=== PATIENT | female | born 2000 | race Caucasian/White ===

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

== ENCOUNTER 2022-09-17 11:27 | Emergency (ER) | payer BC ==
[2022-09-17] MEDS ORDERED: SODIUM CHLORIDE 0.9% 1,000 ML IV ONE (12:04)
[2022-09-17] MEDS ORDERED: METOCLOPRAMIDE 5 MG/ML 2 ML VIAL IVP STA (12:05)
[2022-09-17] MEDS ORDERED: diphenhydrAMINE 50 MG/ML 1 ML VIAL IVP STA (12:05)
--- NOTE | 2022-09-17 12:20 | ED ---
General Adult HPI - General Chief complaint: Neuro Symptoms/Deficit Stated complaint: Facial numbness, headache Time Seen by Provider: 09/17/22 11:35 Source: patient, RN notes reviewed, old records reviewed Mode of arrival: ambulatory - History of Present Illness Initial comments: This is a 21-year-old female presents emergency Department complaining that she had some decreased sensation on her right arm and right side of her face. Patient states it started with some visual changes she stated it look like looking through status and then after that a headache came on the left side of her head and proceeded to have some abnormal sensation in her hand and her face but she always had the ability to feel. Patient never lost her sensation completely. Patient denies any weakness. Patient states at one point a coworker said she was mumbling her words and slurring him a little bit but she stated that even though she knows this is happening and she would concentrate at that time she did speak clearly and was no longer mumbling any of her words. Patient denies any fever chills per patient states she has a history of headaches. She's always called migraines but never been evaluated in the past. Patient denies any recent fevers or chills. Patient is chest pain difficulty breathing. - Related Data Home Medications Medication Instructions Recorded Confirmed ARIPiprazole [Abilify] 10 mg PO DAILY 04/13/21 04/13/21 FLUoxetine HCL [PROzac] 40 mg PO DAILY 04/13/21 04/13/21 Loratadine [Claritin] 10 mg PO HS 04/13/21 04/13/21 Omeprazole 20 mg PO W/LUNCH 04/13/21 04/13/21 cloNIDine HCL [Catapres] 0.3 mg PO HS 04/13/21 04/13/21 medroxyPROGESTERone [Depo-Provera] 150 mg IM Q84D 04/13/21 04/13/21 traZODone HCL [Desyrel] 50 mg PO HS 04/13/21 04/13/21 Previous Rx's Medication Instructions Recorded Amoxicillin 500 mg PO Q12HR 10 Days #20 cap 07/27/22 Allergies Allergy/AdvReac Type Severity Reaction Status Date / Time No Known Allergies Allergy Verified 09/17/22 11:33 Review of Systems ROS Statement: Those systems with pertinent positive or pertinent negative responses have been documented in the HPI. ROS Other: All systems not noted in ROS Statement are negative. Past Medical History Past Medical History: No Reported History Additional Past Medical History / Comment(s): migraine History of Any Multi-Drug Resistant Organisms: None Reported Past Surgical History: No Surgical Hx Reported Past Psychological History: Anxiety, Depression Smoking Status: Never smoker Past Alcohol Use History: None Reported Past Drug Use History: None Reported General Exam - General Exam Comments Initial Comments: GENERAL: Patient is well-developed and well-nourished. Patient is nontoxic and well-hydrated and is in no acute distress. ENT: Neck is soft and supple. No significant lymphadenopathy is noted. Oropharynx is clear. Moist mucous membranes. Neck has full range of motion without eliciting any pain. EYES: The sclera were anicteric and conjunctiva were pink and moist. Extraocular move ments were intact and pupils were equal round and reactive to light. Eyelids were unremarkable. PULMONARY: Unlabored respirations. Good breath sounds bilaterally. No audible rales rhonchi or wheezing was noted. CARDIOVASCULAR: There is a regular rate and rhythm without any murmurs gallops or rubs. ABDOMEN: Soft and nontender with normal bowel sounds. SKIN: Skin is clear with no lesions or rashes and otherwise unremarkable. NEUROLOGIC: Patient is alert and oriented x3. Cranial nerves II through XII are grossly intact. Motor and sensory are also intact. Normal speech, volume and content. Symmetrical smile. Cerebellar exam grossly intact. Patient has an NIH of 0 MUSCULOSKELETAL: Normal extremities with adequate strength and full range of motion. No lower extremity swelling or edema. No calf tenderness. LYMPHATICS: No significant lymphadenopathy is noted PSYCHIATRIC: Normal psychiatric evaluation. Course Vital Signs 09/17/22 09/17/22 09/17/22 11:30 12:24 13:16 Temperature 98.3 F 98.0 F Pulse Rate 96 95 84 Respiratory 16 17 16 Rate Blood Pressure 130/85 138/83 132/83 O2 Sat by Pulse 98 100 100 Oximetry 09/17/22 13:45 Temperature Pulse Rate 87 Respiratory 17 Rate Blood Pressure 137/79 O2 Sat by Pulse 100 Oximetry Medical Decision Making - Medical Decision Making Was pt. sent in by a medical professional or institution (, PA, MOTOR EQUIPMENT CAPTAIN, urgent care, hospital, or detention...) When possible be specific @ -No Did you speak to anyone other than the patient for history (EMS, parent, family, police, friend...)? What history was obtained from this source @ -No Did you review nursing and triage notes (agree or disagree)? Why? @ -I reviewed and agree with nursing and triage notes Were old charts reviewed (outside hosp., previous admission, EMS record, old EKG, old radiological studies, urgent care reports/EKG's, detention records)? Report findings @ -No old charts were reviewed Differential Diagnosis (chest pain, altered mental status, abdominal pain women, abdominal pain men, vaginal bleeding, weakness, fever, dyspnea, syncope, hea dache, dizziness, GI bleed, back pain, seizure, CVA, palpatations, mental health, musculoskeletal)? @ -Differential Headache: Migraine, tension, cluster, carbon monoxide, central venous thrombosis, pension karma temporal arteritis, acute closure glaucoma, intercranial hemorrhage, mastoiditis, sinusitis, head injury, this is not meant to be an all-inclusive list. EKG interpreted by me (3pts min.). @ -As above X-rays interpreted by me (1pt min.). @ -None done CT interpreted by me (1pt min.). @ -CT of the brain was interpreted by myself I see no acute abnormalities U/S interpreted by me (1pt. min.). @ -None done What testing was considered but not performed or refused? (CT, X-rays, U/S, labs)? Why? @ -None What meds were considered but not given or refused? Why? @ -None Did you discuss the management of the patient with other professionals (professionals i.e. , PA, MOTOR EQUIPMENT CAPTAIN, lab, RT, psych nurse, social media campaign manager, manager client support, teacher, staff weapons officer, casey saw operator)? Give summary @ -No Was smoking cessation discussed for >3mins.? @ -No Was critical care preformed (if so, how long)? @ -No Were there social determinants of health that impacted care today? How? (Homelessness, low income, unemployed, alcoholism, drug addiction, transportation, low edu. Level, literacy, decrease access to med. care, snf, rehab)? @ -No Was there de-escalation of care discussed even if they declined (Discuss DNR or withdrawal of care, Hospice)? DNR status @ -No What co-morbidities impacted this encounter? (DM, HTN, Smoking, COPD, CAD, Cancer, CVA, ARF, Chemo, Hep., AIDS, mental health diagnosis, sleep apnea, morbid obesity)? @ -None Was patient admitted / discharged? Hospital course, mention meds given and route, prescriptions, significant lab abnormalities, going to OR and other pertinent info. @ -Patient was given Benadryl and Reglan for the nausea and headache. Patient is computed tomography scan which was negative and I gave her Toradol for pain and the pain almost completely went away at that point. I did order Zofran she states she was still nauseous but then the nausea went away and she refused at this time. I went back in the room to reevaluate her and she was requesting to be discharged home. Undiagnosed new problem with uncertain prognosis? @ -No Drug Therapy requiring intensive monitoring for toxicity (Heparin, Nitro, Insulin, Cardizem)? @ -No Were any procedures done? @ -No Diagnosis/symptom? @ -Migraine headaches Acute, or Chronic, or Acute on Chronic? @ -Acute Uncomplicated (without systemic symptoms) or Complicated (systemic symptoms)? @ -complicated Side effects of treatment? @ -No Exacerbation, Progression, or Severe Exacerbation? @ -No Poses a threat to life or bodily function? How? (Chest pain, [place], VA, pneumonia, PE, COPD, DKA, ARF, appy, cholecystitis, CVA, Diverticulitis, Homicidal, Suicidal, threat to staff... and all critical care pts) @ -No - Lab Data Result diagrams: 09/17/22 12:12 09/17/22 12:12 Lab Results 09/17/22 09/17/22 Range/Units 12:12 12:12 WBC 8.0 (4.0-11.0) k/uL RBC 5.06 (3.80-5.40) m/uL Hgb 12.5 (11.4-16.0) gm/dL Hct 39.2 (34.0-46.0) % MCV 77.5 L (80.0-100.0) fL MCH 24.8 L (25.0-35.0) pg MCHC 31.9 (31.0-37.0) g/dL RDW 15.3 (11.5-15.5) % Plt Count 197 (150-450) k/uL MPV 6.7 Neutrophils % 69 % Lymphocytes % 22 % Monocytes % 6 % Eosinophils % 1 % Basophils % 0 % Neutrophils # 5.5 (1.3-7.7) k/uL Lymphocytes # 1.8 (1.0-4.8) k/uL Monocytes # 0.5 (0-1.0) k/uL Eosinophils # 0.1 (0-0.7) k/uL Basophils # 0.0 (0-0.2) k/uL Microcytosis Slight Sodium 139 (137-145) mmol/L Potassium 3.7 (3.5-5.1) mmol/L Chloride 109 H (98-107) mmol/L Carbon Dioxide 22 (22-30) mmol/L Anion Gap 8 mmol/L BUN 12 (7-17) mg/dL Creatinine 0.48 L (0.52-1.04) mg/dL Est GFR (CKD-EPI)AfAm >90 (>60 ml/min/1.73 sqM) Est GFR (CKD-EPI)NonAf >90 (>60 ml/min/1.73 sqM) Glucose 86 (74-99) mg/dL Calcium 8.6 (8.4-10.2) mg/dL Total Bilirubin 0.3 (0.2-1.3) mg/dL AST 21 (14-36) U/L ALT 24 (4-34) U/L Alkaline Phosphatase 66 (38-126) U/L Total Protein 6.9 (6.3-8.2) g/dL Albumin 3.8 (3.5-5.0) g/dL Disposition Clinical Impression: Migraine headache with aura Disposition: HOME SELF-CARE Condition: Good Instructions (If sedation given, give patient instructions): Migraine Headache (ED) Is patient prescribed a controlled substance at d/c from ED?: No Referrals: Stephani Verdugo MD [Primary Care Provider] - 1-2 days Time of Disposition: 13:59
[2022-09-17 12:32] LABS: Basophils % (A) 0 %; Eosinophils # (A) 0.1 k/uL (0-0.7); Eosinophils % (A) 1 %; HCT 39.2 % (34.0-46.0); HGB 12.5 gm/dL (11.4-16.0); Lymphocytes # (A) 1.8 k/uL (1.0-4.8); Lymphocytes % (A) 22 %; MCH 24.8 pg (25.0-35.0); MCHC 31.9 g/dL (31.0-37.0); MCV 77.5 fL (80.0-100.0); Mean Platelet Volume 6.7; Microcytosis Slight; Monocytes # (A) 0.5 k/uL (0-1.0); Monocytes % (A) 6 %; Neutrophils # (A) 5.5 k/uL (1.3-7.7); Neutrophils % (A) 69 %; Platelet Count 197 k/uL (150-450); RBC 5.06 m/uL (3.80-5.40); RDW 15.3 % (11.5-15.5)
[2022-09-17 12:48] LABS: ALT 24 U/L (4-34); AST 21 U/L (14-36); African American GFR (CKD) >90 (>60 ml/min/1.73 sqM); Albumin 3.8 g/dL (3.5-5.0); Alkaline Phosphatase 66 U/L (38-126); Anion Gap 8 mmol/L; Blood Urea Nitrogen 12 mg/dL (7-17); Calcium 8.6 mg/dL (8.4-10.2); Carbon Dioxide 22 mmol/L (22-30); Chloride 109 mmol/L (98-107); Glucose 86 mg/dL (74-99); Non-African American GFR(CKD) >90 (>60 ml/min/1.73 sqM); Potassium 3.7 mmol/L (3.5-5.1); Sodium 139 mmol/L (137-145); Total Bilirubin 0.3 mg/dL (0.2-1.3); Total Protein 6.9 g/dL (6.3-8.2)
--- NOTE | 2022-09-17 12:59 | CT ---
EXAMINATION TYPE: CT brain wo con DATE OF EXAM: 09/17/2022 COMPARISON: None HISTORY: Facial numbness and headache. CT DLP: 1063.4 mGycm. Automated Exposure Control for Dose Reduction was Utilized. TECHNIQUE: CT scan of the head is performed without contrast. FINDINGS: The ventricles, basal cisterns and sulci over the convexities are within normal limits and there is n o mass effect, hydrocephalus or shift of midline structures. No abnormal density is seen throughout the brain parenchyma and there is no acute intra or extra-axia l hemorrhage. The posterior fossa including the brainstem, fourth ventricle and cerebellar pontine angles appear no rmal. The intraorbital contents appear normal and symmetric. There is minimal chronic inflammatory change in the right maxillary sinus otherwise the paranasal sin uses and mastoid air cells are well aerated. The calvarium is intact IMPRESSION: Minimal chronic inflammatory change right maxillary sinus with no other significant abnormality seen. .
[2022-09-17] MEDS ORDERED: KETOROLAC 15 MG/ML 1 ML VIAL IVP STA (13:05)
[2022-09-17 13:16] VITALS: TEMP 98
[2022-09-17] MEDS ORDERED: ONDANSETRON 4 MG/2 ML VIAL IVP STA (13:40)
[2022-09-17 13:45] VITALS: BP 137/79; PULSE 87; RESP 17
== END 2022-09-17 14:08 | disposition home or self-care (01) ==
LOC: EC 11:27
DX: G43.109 Migraine with aura, not intractable, without status migrainosus (principal); F32.A Depression, unspecified; F41.9 Anxiety disorder, unspecified
CPT/HCPCS: 36415; 80053; 85025; 70450; 99284; 96374; 96375 ×2; 96361; J1200; J2765; J1885

== ENCOUNTER → 2024-10-24 | Outpatient (CLI) | payer BC ==
--- NOTE | 2024-10-24 16:04 | US ---
EXAMINATION TYPE: US OB anatomy transabd DATE OF EXAM: 10/24/2024 COMPARISON: NONE CLINICAL INDICATION: Female, 23 years old with history of Z34.90 ENCNTR FOR SUPRVSN OF NORMAL PREGNAN CY, UNS; Unknown LMP or due date. Found out late about , was not able to get into doctor unt il 2 weeks ago, believed to be 28 weeks. TECHNIQUE: Transabdominal (TA) with grayscale imaging of single gestation. FINDINGS: EXAM MEASUREMENTS: GESTATIONAL AGE / DATING Physician Established: ( weeks/ days) Not established yet EDC: Dates by LMP: ( weeks/ days) Unknown EDC: Dates by First Scan: ( weeks/ days) No previous this is first scan EDC: Dates by Current Scan for: (32 weeks/5 days) EDC: 12/14/2024 SURVEY IUP: Single PLACENTA: Anterior PREVIA: No previa YO: 8.4 cm Oligohydramnios CERVICAL LENGTH (transabdominal: norm > 3.0cm): 4.3 cm CERVICAL LENGTH (transvaginal: norm> 2.5cm): cm (Supplemental transvaginal imaging performed to verify cervical length.) BIOMETRY PRESENTATION: Vertex LIE: Longitudinal BPD: 8.0 cm 32 weeks / 3 days HC: 29.59 cm 32 weeks / 5 days AC: 29.49 cm 33 weeks / 4 days FL: 6.17 cm 32 weeks / 0 days ESTIMATED WEIGHT IN GRAMS: 2066 grams ESTIMATED WEIGHT IN LBS/OZ: 4 lbs. 9 oz. WEIGHT PERCENTAGE BASED ON ESTABLISHED DATE: Unable to determine % HC/AC: 1.00 FL/AC: 21% HEART RATE: 125 bpm RHYTHM: Normal ANATOMY SEEN (within normal limits): * Lateral Vent (< 1 cm) appears WNL Midline Falx Cavus Septi Pellucidi Four Chamber Heart Outflow tracts: LVOT/RVOT Stomach Situs Nose / Lips Diaphragm Kidneys (bilateral) Bladder Three Vessel Cord Arms (bilateral) Legs (bilateral) ANATOMY SEEN (does not appear within normal limits): All anatomy seen appears WNL ANATOMY NOT SEEN: Due to age * Cisterna Magna (< 1.1 cm) cm * Nuchal Fold (< 0.6 cm) cm * Cerebellum (varies with age) cm Choroid Plexus (bilateral) Cord Insert Longitudinal Spine Transverse Spine MATERNAL WALL MEASUREMENT: cm from skin to anterior uterine wall (if exam limited due to body habitus ). IMPRESSION: 1. Single live intrauterine gestation ultrasound age 32 weeks 5 days. 2. YO: 8.4 cm Oligohydramnios 3. Missing anatomy noted above. Ordering provider notified by data center technician. [facility], , 10/24/2024 4:01 PM
== END | disposition home or self-care (01) ==
LOC: RADUSWWP 14:51
DX: O41.03X0 Oligohydramnios, third trimester, not applicable or unspecified (principal); Z3A.32 32 weeks gestation of pregnancy
CPT/HCPCS: 76811

== ENCOUNTER 2024-11-10 16:45 | Outpatient (CLI) | payer BC ==
--- NOTE | 2024-11-10 18:10 | US ---
EXAMINATION TYPE: US OB limited DATE OF EXAM: 11/10/2024 COMPARISON: US 10/24/24 CLINICAL INDICATION: Female, 23 years old with history of YO; YO. Pt 35 weeks. Abd pain TECHNIQUE:: Transabdominal (TA) FINDINGS: YO: 6.97 cm Normal Ultrasound evidence of premature rupture of membranes? no HEART RATE: 128 bpm RHYTHM: Normal IMPRESSION: As above. [facility], , 11/10/2024 6:08 PM
[2024-11-10] MEDS: LACTATED RINGERS 1,000 ML IV ONE (18:49)
[2024-11-10 19:05] VITALS: BP 130/76; PULSE 97; RESP 16; TEMP 97.5
--- NOTE | 2024-11-11 07:42 | US ---
EXAMINATION TYPE: US OB limited DATE OF EXAM: 11/11/2024 COMPARISON: Same ultrasound yesterday - recheck CLINICAL INDICATION: Female, 23 years old with history of YO; YO recheck TECHNIQUE:: Transabdominal (TA) FINDINGS: GESTATIONAL AGE / DATING Physician Established: (35 weeks/2 days) EDC: 12/14/2024 No growth performed on today?s study per ordering physician SURVEY YO: 10.7 cm Normal HEART RATE: 142 bpm RHYTHM: Normal IMPRESSION: As above. [facility], , 11/11/2024 7:40 AM
--- NOTE | 2024-11-11 08:05 | P.HPOB ---
History of Present Illness H&P Date: 11/11/24 Chief Complaint: IUP at 35 weeks, low YO This is a 23-year-old 1 para 0 at 35-2/7 weeks that presented to labor and delivery last evening with complaints of abdominal pain. Patient states abdominal pain was constant. Patient denied dysuria. Patient has been recei ving routine care with the family physician clinic. Patient denies loss of fluid, vaginal bleeding, she notes good movement. Patient states the only complication in her care so far was a "low YO". Upon investigation in the hospital records YO on 10/24 was noted to be 8. Follow-up was not scheduled until 611. YO was completed last evening and noted to be 6. Patient was admitted and observed through the night with IV fluid hydration. Review of Systems Constitutional: Denies chills, Denies fatigue, Denies fever Ears, nose, mouth and throat: Denies headache Cardiovascular: Denies leg edema Respiratory: Denies dyspnea Gastrointestinal: Denies constipation, Denies diarrhea, Denies nausea, Denies vomiting Genitourinary: Reports Past Medical History Past Medical History: No Reported History Additional Past Medical History / Comment(s): migraine History of Any Multi-Drug Resistant Organisms: None Reported Past Surgical History: No Surgical Hx Reported Past Anesthesia/Blood Transfusion Reactions: No Reported Reaction Past Psychological History: Anxiety, Depression Smoking Status: Former smoker Past Alcohol Use History: None Reported Past Drug Use History: None Reported Medications and Allergies Home Medications Medication Instructions Recorded Confirmed Type Vit No.179/Iron/Folic 1 tab PO DAILY 11/10/24 11/10/24 History [ Tablet] Allergies Allergy/AdvReac Type Severity Reaction Status Date / Time No Known Allergies Allergy Verified 11/10/24 16:57 Exam Osteopathic Statement: *. No significant issues noted on an osteopathic structural exam other than those noted in the History and Physical/Consult. Vital Signs Temp Pulse Resp BP Pulse Ox 11/10/24 16:57 97.5 F L 97 16 130/76 99 Intake and Output 11/10/24 11/11/24 11/11/24 22:59 06:59 14:59 Other: # Voids 1 2 Weight 108.862 kg Targeted physical exam is done on this date General Is a well-nourished well- developed female in no acute distress, resting comfortably in bed, breathing is nonlabored, abdomen is noted to be gravid, heart tones are noted to be category 1 and she is not [place]. Assessment and Plan (1) 35 to 36 weeks gestation of Current Visit: Yes Status: Acute Code(s): [id number] - SNOMED Code(s): 574557119 (2) YO (amniotic fluid index) borderline low Current Visit: Yes Status: Acute Code(s): O28.8 - OTHER ABNORMAL FINDINGS ON SCREENING OF MOTHER SNOMED Code(s): 06742080 Plan: Patient was admitted through the night for IV hydration. Continuous monitoring through the evening was reactive/category 1. Repeat YO this morning was noted to be 10. Will plan on discharge home this morning. Patient has follow-up with OB clinic in 1 week
--- NOTE | 2024-11-11 08:06 | P.DS ---
Providers Date of admission: 11/10/24 19:03 Expected date of discharge: 11/11/24 Attending physician: Estefani Meneses Primary care physician: Stated None - Discharge Diagnosis(es) (1) 35 to 36 weeks gestation of Current Visit: Yes Status: Acute (2) YO (amniotic fluid index) borderline low Current Visit: Yes Status: Acute Hospital Course: 23-year-old at 35-2/7 weeks presented to last evening with complaints of abdominal pain. Patient has been receiving routine care which has been complicated by diagnosis of "low YO". Patient states she was to follow-up on 11/19 for repeat YO. Patient underwent YO last evening noted to be 6. Patient was observed through the night patient was begun. Patient has had category 1 heart tones throughout the evening. Ultrasound revealing YO this morning of 10. Will plan discharge home with follow-up at OB clinic. Patient Condition at Discharge: Good Plan - Discharge Summary New Discharge Prescriptions: No Action Vit No.179/Iron/Folic [ Tablet] 1 tab PO DAILY Discharge Medication List Vit No.179/Iron/Folic [ Tablet] 1 tab PO DAILY 11/10/24 [History] Activity/Diet/Wound Care/Special Instructions: Hydration discussed with patient, kick counts are reviewed. Patient is to follow-up as scheduled. Discharge Disposition: HOME SELF-CARE
== END 2024-11-11 08:30 | disposition home or self-care (01) ==
LOC: FBPOP 16:45 → 4FBP 19:03
PROVIDERS: ADMIT Obstetrics & Gynecology Obstetrics; ATTEND Obstetrics & Gynecology Obstetrics
DX: O28.8 Other abnormal findings on antenatal screening of mother (principal); R10.9 Unspecified abdominal pain; F32.A Depression, unspecified; O99.343 Other mental disorders complicating pregnancy, third trimester; F41.9 Anxiety disorder, unspecified; Z3A.36 36 weeks gestation of pregnancy; Z87.891 Personal history of nicotine dependence
CPT/HCPCS: 99213; 59025; 76815 ×2; G0378 ×2

== ENCOUNTER → 2024-11-18 | Outpatient (CLI) | payer BC ==
--- NOTE | 2024-11-18 13:51 | US ---
EXAMINATION TYPE: US OB limited DATE OF EXAM: 11/18/2024 COMPARISON: 11/11/24 CLINICAL INDICATION: Female, 23 years old with history of YO; YO TECHNIQUE:: Transabdominal (TA) FINDINGS: GESTATIONAL AGE / DATING Physician Established: (36 weeks/2 days) EDC: 12/14/24 No growth performed on today?s study per ordering physician SURVEY YO: 8.45 cm Borderline normal Ultrasound evidence of premature rupture of membranes? No HEART RATE: 120 bpm RHYTHM: Normal IMPRESSION: 1. YO 8.45 cm. Correlate with the gestational age of 36 weeks 2 days. 2. Cardiac activity measures 120 bpm was observed during the study. [facility], , 11/18/2024 1:49 PM
[2024-11-18 15:26] VITALS: BP 134/74; PULSE 112; RESP 16; TEMP 97.8
== END ==
LOC: FBPOP 12:57
PROVIDERS: ATTEND Obstetrics & Gynecology
DX: O41.03X0 Oligohydramnios, third trimester, not applicable or unspecified (principal); Z3A.36 36 weeks gestation of pregnancy
CPT/HCPCS: 59025; 76815; 99213

== ENCOUNTER 2024-11-22 01:25 | Inpatient (IN) | payer BC ==
[2024-11-22] MEDS ORDERED: TERBUTALINE 1 MG/ML VIAL SQ PRN (01:52)
[2024-11-22] MEDS ORDERED: CARBOPROST TROMETHAMINE 250 MCG/ML 1 ML AMP IM PRN (01:52)
[2024-11-22] MEDS ORDERED: TRANEXAMIC 1,000 MG/100ML-NACL 1,000 MG in EMPTY BAG 1 BAG IV PRN (01:52)
[2024-11-22] MEDS ORDERED: METHYLERGONOVINE 0.2 MG/ML 1 ML AMP IM PRN (01:52)
[2024-11-22] MEDS ORDERED: miSOPROStoL 200 MCG TAB RECTAL PRN (01:52)
[2024-11-22] MEDS ORDERED: OXYTOCIN 10 UNIT/ML 1 ML VIAL IM PRN (01:52)
[2024-11-22] MEDS ORDERED: miSOPROStoL 200 MCG TAB PO PRN (01:52)
[2024-11-22] MEDS ORDERED: LIDOCAINE 0.5% (PF) 5 MG/ML (50 ML SDV) SQ PRN (01:52)
[2024-11-22] MEDS ORDERED: OXYTOCIN 30 UNITS/500 ML NS 30 UNIT in SALINE 1 500ML.BAG IV SCH (02:00)
[2024-11-22 02:22] LABS: Basophils # (A) 0.02 10*3/uL (0.00-0.10); Basophils % (A) 0.3 %; Eosinophils # (A) 0.03 10*3/uL (0.04-0.35); Eosinophils % (A) 0.4 %; HCT 36.2 % (37.2-46.3); HGB 11.4 g/dL (12.0-15.0); Lymphocytes # (A) 2.28 10*3/uL (0.90-5.00); Lymphocytes % (A) 29.2 %; MCH 24.3 pg (27.0-32.0); MCHC 31.5 g/dL (32.0-37.0); MCV 77.2 fL (80.0-97.0); Mean Platelet Volume 10.9 fL (9.5-12.2); Monocytes # (A) 0.64 10*3/uL (0.20-1.00); Monocytes % (A) 8.2 %; Neutrophils % (A) 61.3 %; Platelet Count 213 10*3/uL (140-440); RBC 4.69 10*6/uL (4.10-5.20); RDW 16.7 % (11.5-14.5); WBC 7.82 10*3/uL (4.50-10.00)
[2024-11-22] MEDS: LACTATED RINGERS 1,000 ML IV SCH (02:24)
[2024-11-22] MEDS ORDERED: SODIUM CHLORIDE 0.9% 250 ML BAG ONE (02:52)
[2024-11-22] MEDS ORDERED: ROPIVACAINE 5 MG/ML 30 ML VIAL ONE (02:52)
[2024-11-22] MEDS ORDERED: fentaNYL (PF) 50 MCG/ML 5 ML AMP ONE (02:52)
--- NOTE | 2024-11-22 03:56 | P.HPOB ---
History of Present Illness H&P Date: 11/22/24 Patient is a 24-year-old female at 366/7 weeks presents with sudden onset clear continuous leakage of fluid beginning at 2357, about 1 hour prior to arrival. ROBERTH 12/14 by third trimester US. has been complicated by late care. Reports regular, moderate-intensity contractions every 2-3 minutes. She reports good movement. No foul odor to fluid. Denies fever, headache, visual changes, chest pain, dyspnea, vaginal bleeding. Pertinent labs: AB+, Rh negative, GBS negative, rubella immune, RPR nonreactive, HepBsAg negative, Hep C nonreactive, HIV negative, gonorrhea negative, chlamydia negative Review of Systems ROS reviewed. Pertinent positives and negatives discussed above, a complete review of systems was performed and all the other systems were negative. Past Medical History Past Medical History: No Reported History Additional Past Medical History / Comment(s): migraine History of Any Multi-Drug Resistant Organisms: None Reported Past Surgical History: No Surgical Hx Reported Past Anesthesia/Blood Transfusion Reactions: No Reported Reaction Past Psychological History: Anxiety, Depression Smoking Status: Former smoker Past Alcohol Use History: None Reported Past Drug Use History: None Reported Medications and Allergies Home Medications Medication Instructions Recorded Confirmed Type Vit No.179/Iron/Folic 1 tab PO DAILY 11/10/24 11/22/24 History [ Tablet] Allergies Allergy/AdvReac Type Severity Reaction Status Date / Time No Known Allergies Allergy Verified 11/22/24 01:28 Exam Vital Signs Temp Pulse Resp BP Pulse Ox 11/22/24 01:54 98.1 F 94 18 130/87 94 L Intake and Output 11/21/24 11/21/24 11/22/24 14:59 22:59 06:59 Other: Weight 109.769 kg Vital signs are stable. General: No acute distress. Alert and oriented. Lungs: Nonlabored breathing. Abdomen: Gravid and appropriate for gestational age. Cervical exam: 5/70/-2 vertex, SROM , clear fluid. Extremities: Symmetric movement. Category 1 heart tones. Results Result Diagrams: 11/22/24 01:55 Abnormal Lab Results - Last 24 Hours (Table) 11/22/24 Range/Units 01:55 Hgb 11.4 L (12.0-15.0) g/dL Hct 36.2 L (37.2-46.3) % MCV 77.2 L (80.0-97.0) fL MCH 24.3 L (27.0-32.0) pg MCHC 31.5 L (32.0-37.0) g/dL Immature Gran # 0.05 H (0.00-0.04) 10*3/uL Eosinophils # 0.03 L (0.04-0.35) 10*3/uL Assessment and Plan Assessment: Patient is a 24-year-old G1, P0 at 36+6 weeks gestation with prelabor spontaneous rupture of membranes in the late period admitted in early labor. Plan: - Admit to [facility] - Continuous EFM and tocometer - GBS negative, no antibiotics indicated - Anticipate spontaneous vaginal delivery
[2024-11-22 06:20] LABS: Amphetamine Screen,Urine Not Detected (NotDetected); Barbiturate Screen,Urine Not Detected (NotDetected); Benzodiazepines Screen,Urine Not Detected (NotDetected); Cocaine Screen,Urine Not Detected (NotDetected); Methadone Screen, Urine Not Detected (NotDetected); Opiate Screen,Urine Not Detected (NotDetected); Oxycodone Screen, Urine Not Detected (NotDetected); Phencyclidine Screen,Urine Not Detected (NotDetected); Tricyclic Antidepressant,Urine Not Detected (NotDetected); Urn Cannabinoid Scrn Detected (NotDetected)
[2024-11-22] MEDS ORDERED: LANOLIN CREAM 1 GM TUBE TOPICAL PRN (08:04)
[2024-11-22] MEDS ORDERED: HYDROCORTISONE 2.5% RECTAL CREAM 30 GM TUBE RECTAL PRN (08:04)
[2024-11-22] MEDS ORDERED: diphenhydrAMINE 25 MG CAP PO PRN (08:04)
[2024-11-22] MEDS ORDERED: ZOLPIDEM 5 MG TAB PO PRN (08:04)
[2024-11-22] MEDS ORDERED: SIMETHICONE 80 MG CHEWABLE PO PRN (08:04)
[2024-11-22] MEDS ORDERED: diphenhydrAMINE 50 MG/ML 1 ML VIAL IVP PRN ×2 (08:04)
[2024-11-22] MEDS ORDERED: diphenhydrAMINE 50 MG CAP PO PRN (08:04)
--- NOTE | 2024-11-22 08:09 | P.PROBDLV ---
Vaginal Delivery Note - . Vaginal Delivery Note: Date of service 11/22/2024 Findings: Viable male infant delivered at 746, weight of 7 pounds 7 ounces This is a 24-year-old 1 para 0 at 36-6/7 weeks based on third trimester ultrasound that was admitted with complaints of spontaneous rupture of membranes around 2357, clear in nature. Patient had an estimated due date of 7 6 based on third trimester ultrasound, late care. Patient was admitted to labor and delivery and quickly requested an epidural. Epidural was placed without difficulty by the anesthesia department.. Patient made good progress toward complete dilation. Once completely dilated patient began pushing and had a normal spontaneous vaginal delivery of a viable male at 746, weight of 7-7 3385gms. After 2-minute delay the umbilical cord was doubly clamped and cut. Placenta was delivered spontaneously intact with a three-vessel cord being noted. Uterus was noted to be firm and below the umbilicus. Red rubber catheter was used to drain the bladder of 200 cc of yellow urine. On inspection of the patient's vaginal vault a midline second-degree laceration was appreciated. This was injected with lidocaine and repaired in the usual fashion with 3-0 Rapide. Hemostasis was noted after closure. At the end of the delivery all counts were noted be correct x 2. Patient and tolerated delivery well and are resting comfortably
[2024-11-22] MEDS: IBUPROFEN 800 MG TAB PO SCH (11:21)
[2024-11-22] MEDS: PRENATAL VIT-IRON-FOLIC ACID 1 EACH TABLET PO SCH (11:21)
[2024-11-22] MEDS: BENZOCAINE/MENTHOL SPRAY 1 GM/SPRAY AEROSOL TOPICAL PRN (11:22)
[2024-11-22] MEDS: ACETAMINOPHEN TAB 500 MG TAB PO SCH (12:25)
[2024-11-22] MEDS: SENNOSIDES-DOCUSATE SODIUM 1 EACH TAB PO SCH (19:57)
[2024-11-23 00:25] VITALS: RESP 16
[2024-11-23 08:18] VITALS: BP 126/86; PULSE 73; TEMP 98
--- NOTE | 2024-11-23 08:40 | P.DS ---
Providers Date of admission: 11/22/24 01:47 Expected date of discharge: 11/23/24 Attending physician: Estefani Meneses Primary care physician: Stated None - Discharge Diagnosis(es) (1) Vaginal delivery Current Visit: Yes Status: Acute (2) 35 to 36 weeks gestation of Current Visit: Yes Status: Acute (3) YO (amniotic fluid index) borderline low Current Visit: Yes Status: Acute Hospital Course: Patient is a 24-year-old G1, P1 admitted at 366/7 weeks for spontaneous rupture of membranes. has been complicated by late care and decreased YO. Labor progressed without complication. Group B strep was negative. Patient was completely dilated and infant was delivered at 0746. A healthy male was delivered with Apgars of 9 and 10 and a birthweight of 3385 g (7 pounds 7 ounces). The placenta was delivered intact and EBL 100 mL. There was a second-degree laceration that was repaired with absorbable suture. Uterus involution appropriate. course was unremarkable. Patient was afebrile, hemodynamically stable, ambulating independently, and voiding without difficulty. Lochia was apppropriate. Patient is bottlefeeding. Pain was well- controlled with Tylenol and Motrin. remained stable and is being discharged with the patient. Physical examination: Vital signs reviewed General: Nontoxic, no distress, appears stated age, well-appearing Lungs: Symmetric chest wall expansion, nonlabored breathing on room air Extremities: Normal, without pitting edema Uterus: Normal, firm, below umbilicus Patient Condition at Discharge: Good Plan - Discharge Summary New Discharge Prescriptions: No Action Vit No.179/Iron/Folic [ Tablet] 1 tab PO DAILY Discharge Medication List Vit No.179/Iron/Folic [ Tablet] 1 tab PO DAILY 11/10/24 [History] Follow up Appointment(s)/Referral(s): Daniela Mendoza MD [RESIDENT] - 6 Weeks Patient Instructions/Handouts: Vaginal Delivery (DC) Activity/Diet/Wound Care/Special Instructions: Please avoid intercourse, tub baths, and swimming in pools/lakes/oceans/hot tubs for 6 weeks. routine check at 6 weeks to be scheduled at the [facility]. Your pain can be treated with ibuprofen and acetaminophen. You can take up to 400-600 mg of ibuprofen (Advil, Motrin) 3 times daily (every 8 hours). Do not combine either with ketorolac (Toradol), meloxicam (Mobic), or indomethacin (Tivorbex). Some people can develop stomach discomfort with higher doses of either ibuprofen or naproxen, if this develops decrease your dose or stop taking it. Please take these medications with food. You can take up to 1000 mg of acetaminophen (Tylenol) every 6 hours. Discharge Disposition: HOME SELF-CARE
--- NOTE | 2024-11-25 20:50 | P.MSEPDOC ---
Presenting Problems - Arrival Data Date of Arrival on Unit: 11/22/24 Time of Arrival on Unit: 01:47 Mode of Transport: Wheelchair - Complaint OB-Reason for Admission/Chief Complaint: Possible Onset of Labor, Rule Out SROM Comment: amnisure positive Medical History - Information : 1 Para: 0 Term: 0 : 0 Abortions: Spontaneous or Elective: 0 Number of Living Children: 0 - Gestational Age Gestational Age by ROBERTH (wks/days): 36 Weeks and 6 Days - History Complications: Other Comment: low YO 8.4 on 11/18/24 Review of Systems - Review of Systems Constitutional: No problems Breast: No problems ENT: No problems Cardiovascular: No problems Respiratory: No problems Gastrointestinal: No problems Genitourinary: No problems Musculoskeletal: No problems Neurological: No problems Skin: No problems Vital Signs - Temperature Temperature: 98.0 F Temperature Source: Oral - Pulse Right Radial Pulse Rate: 73 Pulse Assessment Method: Auscultation Right Pulse Rate: 94 Pulse Assessment Method: Pulse Oximetry - Respirations Respiratory Rate: 16 O2 Sat by Pulse Oximetry: 99 - Blood Pressure Right Arm Blood Pressure: 126/86 Blood Pressure Mean: 99 Blood Pressure Source: Automatic Cuff Medical Screen Scoring - Cervical Exam Dilation (cm): 5 Effacement (%): 70 Station: -2 Membranes: Ruptured - Uterine Contractions Frequency From (mins): 2 Frequency To (mins): 4 Duration From (seconds): 60 Duration To (seconds): 80 Intensity: Strong Resting: Soft to palpation - Assessment - Baby A Baseline FHR: 130 Heart Rate - NICHD Category: Category I (Normal) NST: Reactive Physician Notification - Physician Notified Physician Notified Date: 11/22/24 Physician Notified Time: 01:45 Physician: Estefani Meneses New Order Received: Yes (admit patient, epidural if desired, pitocin if contractions space out.) Maternal Triage Index - Prompt/Priority 3 Prompt Priority 3: Yes Criteria Met for Priority 3: SROM, active labor 36 6/7 weeks Disposition - Disposition OB Disposition: Admit Discharge Date: 11/22/24 Discharge Time: 15:15 I agree with the RN Medical Screening Exam: Yes Case reviewed; plan agreed upon as documented in EMR&OBIX.: Yes Diagnosis: RELATED CONDITIONS, UNSPECIFIED, THIRD TRIMESTER
== END 2024-11-23 15:15 | disposition home or self-care (01) | DRG 768 ==
LOC: FBPOP 01:25 → 4FBP 01:47
PROVIDERS: ADMIT Obstetrics & Gynecology Obstetrics; ATTEND Obstetrics & Gynecology Obstetrics
PROC: 10E0XZZ Delivery of Products of Conception, External Approach (ICD-10-PCS; principal; 2024-11-22)
PROC: 0UQG0ZZ Repair Vagina, Open Approach (ICD-10-PCS; principal; 2024-11-22)
DX: O42.013 Preterm premature rupture of membranes, onset of labor within 24 hours of rupture, third trimester (principal); Z37.0 Single live birth; F32.A Depression, unspecified; O99.344 Other mental disorders complicating childbirth; O70.1 Second degree perineal laceration during delivery; F41.9 Anxiety disorder, unspecified; Z87.891 Personal history of nicotine dependence; Z3A.36 36 weeks gestation of pregnancy
CPT/HCPCS: 59025; 80306; 84112; 85025; 86850; 86900; 86901; 99213